=== PATIENT | male | born 1975 | race Caucasian/White ===

== ENCOUNTER → 2017-07-29 13:11 | Outpatient (CLI) | payer OTHER, SELFPAY ==
--- NOTE | 2017-07-29 | DI.MRI.S_ITS ---
PROCEDURE: MR LUMBAR SPINE WO CON INDICATIONS: PAIN TECHNIQUE: Noncontrast sagittal T1 spin echo and T2 fast echo, sagittal STIR, axial T1 and T2 fast spin echo through the lumbar spine. In cases with scoliosis, additional coronal T2 fast spin echo may be performed. COMPARISON: None. FINDINGS: Image quality: Excellent. Alignment and Curvature: There is normal bony alignment. Bone Marrow: Marrow is of normal overall signal. No acute vertebral body compression fractures. Spinal Cord: Conus medullaris terminates at the L1 level. Visualized cord demonstrates normal signal and size. Paraspinous Soft Tissues: No paravertebral masses. L1-L2: No disc bulge, spinal stenosis or foraminal narrowing.. L2-L3: Minimal disc bulge without spinal stenosis or foraminal narrowing. L3-L4: Minimal disc bulge without spinal stenosis or foraminal narrowing. L4-L5: No disc bulge, spinal stenosis or foraminal narrowing. L5-S1: No disc bulge, spinal stenosis or foraminal narrowing. IMPRESSION: 1. Minimal early degenerative changes noting disc bulges at L2-3 and L3-4. Dictated by: Kaylene Forde M.D. on 07/29/2017 at 19:43 Approved by: Kaylene Forde M.D. on 07/29/2017 at 19:46
--- NOTE | 2017-07-29 | DI.MRI.S_ITS ---
PROCEDURE: MR KNEE RT WO CON INDICATIONS: PAIN OF RIGHT KNEE AND LUMBAR SPINE TECHNIQUE: Noncontrast sagittal PD fast spin echo and T2 fast spin echo with fat saturation, sagittal 3-D FLASH with fat saturation; coronal T1 spin echo and PD fast spin echo with fat saturation, and axial PD fast spin echo with fat saturation through the knee. COMPARISON: CR, XR KNEE ARTHRITIC SERIES RT, 07/07/2017, 13:48. FINDINGS: Image quality: Excellent. Menisci: The medial and lateral menisci demonstrate normal morphology and internal signal. The meniscal root ligaments appear intact. Cruciate ligaments: The posterior cruciate ligament is intact. There is mild posterior bowing of the anterior cruciate ligament. Medial structures: The medial collateral ligament appears intact. The posterior oblique ligament, semimembranosus tendon insertions, oblique popliteal ligament, and meniscocapsular junction appear intact. Visualized portions of the pes anserinus tendons appear normal. No abnormal bursal fluid. Lateral structures: The lateral collateral ligament, long and short heads of the biceps femoris tendon appear intact. The popliteus tendon appears normal; the popliteofibular ligament appears intact. The posterosuperior and anteroinferior popliteomeniscal fascicles appear intact. The arcuate and fabellofibular ligaments appear intact, on either side of the lateral inferior geniculate artery. Iliotibial band appears normal. Anterior structures: The quadriceps tendon is intact. There are 2 small regions of fluid signal intensity within the patellar tendon at patellar insertion site. This portion of the tendon is mildly enlarged. Patellar alignment is normal. No femoral trochlear dysplasia or ventral trochlear prominence. Mild edema within the infrapatellar fat pad adjacent to the superior patellar tendon. Bones and cartilage: No bone marrow contusions or fractures. The cartilage of the medial and lateral femorotibial compartments, as well as the patellofemoral compartment, appears normal in thickness. Joint space: There is physiologic knee joint fluid. No Seals's cyst. Normal appearing synovial plicae are incidentally noted. IMPRESSION: 1. Patellar tendinitis with small partial thickness tears of the patellar tendon. 2. Partial thickness ACL tear. Dictated by: Seamus Esposito M.D. on 07/29/2017 at 14:55 Approved by: Seamus Esposito M.D. on 07/29/2017 at 14:56
== END ==
PROVIDERS: Visit Provider Orthopaedic Surgery Orthopaedic Surgery of the Spine
DX: M76.51 Patellar tendinitis, right knee (principal); S83.511A Sprain of anterior cruciate ligament of right knee, initial encounter; M51.36 Other intervertebral disc degeneration, lumbar region; M25.561 Pain in right knee; M54.5 Low back pain
CPT/HCPCS: 72148; 73721

== ENCOUNTER 2017-11-04 13:22 | Emergency (ER) | payer OTHER, SELFPAY ==
[2017-11-04 13:31] VITALS: BP 111/69; PULSE 70; RESP 14; TEMP 36.8; O2SAT 98
--- NOTE | 2017-11-04 14:33 | ED.EYEPROB ---
HPI - Eye Problem <TARAS Tatum - Last Filed: 11/04/17 20:49> General Chief complaint: Eye Problems Stated complaint: HIT IN RT EYE WITH SCREW Time Seen by Provider: 11/04/17 14:33 Source: patient Mode of arrival: ambulatory Limitations: no limitations History of Present Illness HPI Narrative: 41-year-old male with history of asthma everyday smoker here for complaint of pain into his right eye. He states he was using a screw Gun yesterday when the screw came back and hit him in his right eye. He reports pain into his right eye with some blurriness to his right side of vision. He states his tetanus is up-to-date last tetanus was 3 years ago. He denies any other concerns or complaints or injuries at this time. Increased pain with palpation to the right eye. MD chief complaint: eye pain, eye redness and eye injury Related Data Home Medications Medication Instructions Recorded Confirmed albuterol sulfate [Ventolin HFA] 2 puff INH #0 10/19/16 sildenafil [Viagra] 25 mg PO PRN PRN #0 10/19/16 Previous Rx's Medication Instructions Recorded acetaminophen 325 - 650 mg PO Q4HP PRN #30 tab 10/21/16 Allergies Allergy/AdvReac Type Severity Reaction Status Date / Time hydrocodone [From VICODIN] AdvReac Mild nausea Verified 11/04/17 13:36 tramadol [TRAMADOL] AdvReac Unknown VOMITING Verified 11/04/17 13:36 Review of Systems <TARAS Tatum - Last Filed: 11/04/17 20:49> Constitutional Denies chills, Denies fever(s), Denies lethargy and Denies weakness Eyes Reports change in vision, Denies eye discharge, Reports irritation, Denies loss of vision and Reports eye pain ENT Ears, Nose, Mouth, and Throat: Denies change in voice, Denies neck pain and Denies sore throat Cardiovascular Denies chest pain, Denies irregular heart rhythm, Denies lightheadedness, Denies palpitations, Denies dyspnea, Denies dyspnea on exertion and Denies orthopnea Respiratory Denies cough, Denies dyspnea, Denies dyspnea on exertion and Denies wheezing Gastrointestinal Gastrointestinal: Denies abdominal pain, Denies change in bowel habits, Denies diarrhea, Denies nausea and Denies vomiting Genitourinary Denies hematuria, Denies flank pain, Denies urinary incontinence and Denies urinary urgency Musculoskeletal Denies neck pain Integumentary/Breasts Denies pruritus, Denies erythema, Denies rash and Denies wounds Neurologic Denies confusion, Denies loss of vision and Denies weakness Psychiatric Denies anxiety, Denies confusion, Denies depression, Denies homicidal ideation and Denies suicidal ideation Endocrine Denies palpitations Allergic/Immunologic Denies wheezing Exam <TAARS Tatum - Last Filed: 11/04/17 20:49> Initial Vital Signs Initial Vital Signs: Vital Signs Temperature 98.2 F 11/04/17 13:31 Pulse Rate 70 11/04/17 13:31 Respiratory Rate 14 11/04/17 13:31 Blood Pressure 111/69 11/04/17 13:31 Pulse Oximetry 98 11/04/17 13:31 Const General: cooperative and well developed Nutritional Appearance: well nourished Orientation: alert, awake, oriented x3 and not confused HENMT Head: normocephalic and atraumatic Mouth: oral mucosae normal, oropharynx normal and moist mucous membranes Eyes Sclera: scleral abnormality (Scelral abrasion/ulceration to the right lateral sclera at 9:00 position. Pressure measurements of 28mhg was obtained) Pupils: PERRL EOM: EOM intact bilaterally Resp Effort & Inspection: normal respiratory effort, able to speak in complete sentences, no respiratory distress and no use of accessory muscles Auscultation: clear to auscultation bilaterally, no rales, no rhonchi and no wheezes Cardio Rate: regular rate Rhythm: regular rhythm Heart Sounds: no click, no gallops, no murmurs and no rubs Pulses: normal peripheral pulses Skin General: no rashes or lesions noted, No jaundice and No petechiae Neuro General: alert, oriented x3, gait normal and no focal motor deficits Speech: speech normal <Antonia Aparicio DO - Last Filed: 11/09/17 07:32> Initial Vital Signs Initial Vital Signs: Vital Signs Temperature 98.2 F 11/04/17 13:31 Pulse Rate 70 11/04/17 13:31 Respiratory Rate 14 11/04/17 13:31 Blood Pressure 111/69 11/04/17 13:31 Pulse Oximetry 98 11/04/17 13:31 Course <TARAS Tatum - Last Filed: 11/04/17 20:49> Vital Signs - 8 hr 11/04/17 13:31 Temperature 98.2 F Pulse Rate 70 Respiratory Rate 14 Blood Pressure 111/69 Pulse Oximetry 98 <Antonia DO Markus - Last Filed: 11/09/17 07:32> Vital Signs - 8 hr 11/04/17 13:31 Temperature 98.2 F Pulse Rate 70 Respiratory Rate 14 Blood Pressure 111/69 Pulse Oximetry 98 MDM - Eye Problem <ISSAC TtaumP - Last Filed: 11/04/17 20:49> MDM Narrative Medical decision making narrative: Visual acuity was obtained and was unremarkable. Fluorescein exam was completed to the right eye where a scleral ulcerations to 9:00 position was seen. Pressure of the eye was obtained at 28 mm of mercury. Discussed case with a Dr. Darnell ophthalmology who will follow up with patient. Patient is sent over to Ophthalmology for further care and treatment. Discharge Plan Departure Patient Disposition: Home Clinical Impression: Scleral laceration Discharge Date/Time: 11/04/17 15:22 Interventions: ED Discharge Assessment Last Done: 11/04/17 15:20 Instructions: DI for Eye Pain Activity Restrictions/Additional Instructions: Ophthalmology will see you this afternoon. Proceed to Ophthalmology after leaving the emergency room for further evaluation and treatment. Follow up with primary care provider. Return emergency room for any worsening symptoms. Prescriptions: No Action albuterol sulfate [Ventolin HFA] 90 MCG/PUFF HFA aerosol inhaler 2 puff INH Qty: 0 RF: 0 sildenafil [Viagra] 25 MG tablet 25 mg PO PRN PRNQty: 0 RF: 0 acetaminophen 325 MG tablet 325 - 650 mg PO Q4HP PRNQty: 30 RF: 0 Referrals: Temo Yancey MD [Primary Care Provider] - <Antonia Aparicio DO - Last Filed: 11/09/17 07:32> Cosign ED Attending Cosignature Attestation: I was immediately available in the department for consultation. Documentation has been reviewed. I agree with assessment and plan.
== END 2017-11-04 15:22 | disposition home or self-care (01) ==
PROVIDERS: Emergency Provider Nurse Practitioner Family; PCP Family Medicine
DX: S05.31XA Ocular laceration without prolapse or loss of intraocular tissue, right eye, initial encounter (principal); W26.9XXA Contact with unspecified sharp object(s), initial encounter
CPT/HCPCS: 99282; 99283